=== PATIENT | male | born 1970 | race Caucasian/White ===

== ENCOUNTER 2021-07-27 13:03 | Inpatient (IN) ==
[2021-07-27] MEDS ORDERED: dexAMETHasone**PF** 10 MG/ML VIAL IV ONE (14:43)
[2021-07-27] MEDS ORDERED: SODIUM CHLORIDE 0.9% 1000ML 1,000 ML IV ONE (14:49)
--- NOTE | 2021-07-27 14:50 | Emergency Department Note ---
Impression & Plan Pneumonia due to COVID-19 virus, Hypoxia ED Provider Note NAME: HALIMA CORTEZ AGE: 51 SEX: M : 1970 ARRIVES VIA: Walk-In INFORMANT: Patient ED PROVIDER(S): Lucas Becker DO CHIEF COMPLAINT: Cough and shortness of breath HPI: Patient is a 51-year-old male who presents to the ER as he tested positive for Covid around July 08. His symptoms started on the with cough and congestion. He did have some diarrhea which was mainly gas. He denies any belly pain, nausea, or vomiting. No dysuria, urgency, or frequency. He notes he is short of breath but does not believe that is any worse. He has been using a pulse ox at home. He went to get his Covid vaccine today and was referred over for low pulse ox. ROS: See above HPI for pertinent positives & negatives. A total of 10 systems reviewed and were otherwise negative. PAST MEDICAL HISTORY:See Below PAST SURGICAL HISTORY:See Below FAMILY HISTORY:See Below SOCIAL HISTORY:See Below HOME MEDICATIONS:See Below ALLERGIES:See Below VITALS:See Below PHYSICAL EXAMINATION: GENERAL: Sitting up in bed, alert, well appearing, well nourished, no distress, non-toxic EYE EXAM: normal conjunctiva. OROPHARYNX: no exudate, no erythema, lips, buccal mucosa, and tongue normal and mucous membranes are moist NECK: supple, no nuchal rigidity, no adenopathy, non-tender LUNGS: Clear to auscultation. Normal chest wall mechanics HEART: no murmurs, S1 normal and S2 normal ABDOMEN: abdomen soft, non-tender, normo-active bowel sounds, no masses, no rebound or guarding. BACK: Back is symmetrical on inspection and there is no deformity, no midline tenderness, no CVA tenderness. SKIN: no rashes and no bruising UPPER EXTREMITIES: upper extremities are grossly normal. LOWER EXTREMITIES: No pitting edema. Calves are equal bilateral NEURO EXAM: Normal sensorium, cranial nerves II-XII grossly intact, normal speech, no gross weakness of arms, no gross weakness of legs. MEDICAL DECISION MAKING: Patient is a 51-year-old male who presents the ER for shortness of breath and concern for Covid as he did test positive around the . He is having pulse ox readings at home which are low. IV was established blood was obtained. Labs show no significant leukocytosis or anemia. Platelets were elevated at nearly 500. BMP with mild hypokalemia. LFTs were slightly up with an ALT of 100. T bili was normal. Lipase was slightly up at 450. Covid was positive. CT angios chest shows no PEs but multifocal infiltrate consistent with Covid. EKG was unremarkable. He was given steroids and fluids. Updated bedside discussed with the hospitalist admitted for further work-up. Triage Nursing notes reviewed. Limited review of prior medical records performed Vital Signs: reviewed and remarkable for tachy Differential diagnosis: Differential diagnoses includes but is not limited to pneumonia, bronchitis, COPD/Asthma exacerbation, pneumothorax, pulmonary embolism, congestive heart failure, acute coronary syndrome ER treatment provided: See below Diagnostics interpreted by me: ECG: Sinus rhythm rate of 98 Left axis No PVCs QTC 459 Cardiac Monitoring: An order was placed for continuous cardiac monitoring. The monitor shows a rate of 95 with sinus rhythm. Laboratory studies: As stated above and show below. Imaging studies: CT angios shows multifocal pneumonia. Consultation(s): none Procedures: none Critical Care: None Past Med/Surg History Medical History Asthma Depression GERD (gastroesophageal reflux disease) Moderate obstructive sleep apnea Surgical History History of surgery on arm fracture L arm, surgical repair Family History Mother Diabetes Hypertension Social History Smoking Status: Never smoker Tobacco Type: Smokeless Tobacco (Dip or Chew) Hx Alcohol Use: Yes (former alcohol user) Hx Substance Use: No Feels Safe at Home: Yes Allergies Allergies Allergy/AdvReac Type Severity Reaction Status Date / Time No Known Allergies Allergy Verified 07/27/21 15:43 Home Meds Home Medications Medication Instructions Recorded Confirmed aclidinium bromide 400 1 inh INHALATION Q12H 07/27/21 07/27/21 mcg/actuation breath activated powder inhaler (Tudorza Pressair) albuterol sulfate 2.5 mg INHALATION Q4H PRN 07/27/21 07/27/21 albuterol sulfate 90 mcg/actuation 2 puff INHALATION Q6H PRN 07/27/21 07/27/21 aerosol inhaler budesonide 0.5 mg/2 mL suspension 0.5 mg INHALATION BID 07/27/21 07/27/21 for nebulization (Pulmicort) fluticasone furoate 100 1 inh INHALATION DAILY 07/27/21 07/27/21 mcg-vilanterol 25 mcg/dose inhalation powder (Breo Ellipta) montelukast 10 mg tablet 10 mg PO DAILY 07/27/21 07/27/21 (Singulair) omeprazole 20 mg tablet,delayed 20 mg PO DAILY 07/27/21 07/27/21 release prednisone 5 mg tablet 5 mg PO DAILY 07/27/21 07/27/21 Results & Data (ED) Vital Signs Vital Signs - 24 hr 07/27/21 13:10 07/27/21 13:33 07/27/21 14:32 Temperature 36.7 C Temperature Source Temporal Artery Scan Pulse Rate 114 H 102 H Pulse Rate [Right Finger] 115 H Pulse Rate from SpO2 Sensor 100 H Respiratory Rate 20 20 23 Respiratory Effort / Characteristics Non-Labored Spontaneous Respiratory Depth Normal Respiratory Pattern Regular Blood Pressure 148/90 H 158/86 H Blood Pressure [Right Arm] 131/90 Blood Pressure Mean 109 110 Blood Pressure Mean [Right Arm] 103 Blood Pressure Position [Right Arm] Sitting Pulse Oximetry 91 90 89 L Oxygen Delivery Method Room Air Room Air Sepsis Recent Fever Within 48 Hours No Sepsis New/Unexplained Change in Mental Status No Sepsis Action Taken by Nursing No Action Required 07/27/21 15:00 07/27/21 15:27 07/27/21 15:30 Temperature Temperature Source Pulse Rate 100 H 78 95 H Pulse Rate [Right Finger] 87 Pulse Rate from SpO2 Sensor 100 H 94 H Respiratory Rate 31 H 20 29 H Respiratory Effort / Characteristics Respiratory Depth Respiratory Pattern Blood Pressure 128/98 155/99 H Blood Pressure [Right Arm] 128/98 Blood Pressure Mean 108 117 Blood Pressure Mean [Right Arm] 108 Blood Pressure Position [Right Arm] Lying Pulse Oximetry 89 L 91 92 Oxygen Delivery Method Room Air Sepsis Recent Fever Within 48 Hours Sepsis New/Unexplained Change in Mental Status Sepsis Action Taken by Nursing 07/27/21 16:13 07/27/21 16:30 07/27/21 16:45 Temperature Temperature Source Pulse Rate 127 H 150 H 98 H Pulse Rate [Right Finger] Pulse Rate from SpO2 Sensor 110 H Respiratory Rate 21 33 H 30 H Respiratory Effort / Characteristics Respiratory Depth Respiratory Pattern Blood Pressure Blood Pressure [Right Arm] Blood Pressure Mean Blood Pressure Mean [Right Arm] Blood Pressure Position [Right Arm] Pulse Oximetry 90 91 93 Oxygen Delivery Method Room Air Sepsis Recent Fever Within 48 Hours Sepsis New/Unexplained Change in Mental Status Sepsis Action Taken by Nursing Laboratory Data Result diagrams: 07/27/21 15:13 07/27/21 15:13 Lab Results 07/27/21 07/27/21 07/27/21 Range/Units 15:13 15:13 15:13 WBC 9.70 (4.8-10.8) K/uL RBC 5.09 (4.7-6.1) M/uL Hgb 15.9 (14.0-18.0) g/dL Hct 44.5 (42-52) % MCV 87.4 (80-100) fL MCH 31.2 (25-34) pg MCHC 35.7 (32-36) g/dL RDW Std Deviation 42.6 (36.4-46.3) fL RDW Coeff of Estiven 13.3 (11.5-14.5) % Plt Count 496 H (130-400) K/uL MPV 9.8 (7.4-10.4) fL Immature Gran % (Auto) 1.8 % Neut % (Auto) 73.4 % Lymph % (Auto) 13.8 % Burke % (Auto) 9.0 % Eos % (Auto) 1.6 % Baso % (Auto) 0.4 % Neut # (Auto) 7.12 H (1.4-6.5) K/uL Lymph # (Auto) 1.34 (1.2-3.4) K/uL Burke # (Auto) 0.87 H (0.11-0.59) K/uL Eos # (Auto) 0.16 (0-0.5) K/uL Baso # (Auto) 0.04 (0-0.2) K/uL Immature Gran # (Auto) 0.17 H (0.00-0.02) K/uL APTT 25.4 (21.0-31.0) Seconds PTT Ratio 1.0 Sodium 135 L (136-145) mmol/L Potassium 3.0 L (3.5-5.1) mmol/L Chloride 102 (98-107) mmol/L Carbon Dioxide 24 (21-32) mmol/L Anion Gap 8.0 (3-11) BUN 8 (7-18) mg/dl Creatinine 0.88 (0.6-1.4) mg/dl Est Cr Clr Drug Dosing 130.3 ml/min Est GFR ( Amer) 116.1 ml/min Est GFR (Non-Af Amer) 100.2 ml/min BUN/Creatinine Ratio 9.3 L (10-20) Glucose 126 H (70-99) mg/dl Calcium 8.5 (8.5-10.1) mg/dl Total Bilirubin 0.6 (0.2-1) mg/dl AST 49 H (15-37) U/L ALT 100 H (12-78) U/L Alkaline Phosphatase 116 (45-117) U/L Troponin I < 0.015 (0-0.045) ng/ml Total Protein 7.3 (6.4-8.2) gm/dl Albumin 2.4 L (3.4-5.0) gm/dl Globulin 4.9 H (2.5-4.0) gm/dl Albumin/Globulin Ratio 0.5 L (0.9-2) Lipase 452 H (73-393) U/L COVID-19 Eval Order SARS-CoV-2 (PCR) (Negative) 07/27/21 07/27/21 Range/Units 15:20 15:20 WBC (4.8-10.8) K/uL RBC (4.7-6.1) M/uL Hgb (14.0-18.0) g/dL Hct (42-52) % MCV (80-100) fL MCH (25-34) pg MCHC (32-36) g/dL RDW Std Deviation (36.4-46.3) fL RDW Coeff of Estiven (11.5-14.5) % Plt Count (130-400) K/uL MPV (7.4-10.4) fL Immature Gran % (Auto) % Neut % (Auto) % Lymph % (Auto) % Burke % (Auto) % Eos % (Auto) % Baso % (Auto) % Neut # (Auto) (1.4-6.5) K/uL Lymph # (Auto) (1.2-3.4) K/uL Burke # (Auto) (0.11-0.59) K/uL Eos # (Auto) (0-0.5) K/uL Baso # (Auto) (0-0.2) K/uL Immature Gran # (Auto) (0.00-0.02) K/uL APTT (21.0-31.0) Seconds PTT Ratio Sodium (136-145) mmol/L Potassium (3.5-5.1) mmol/L Chloride (98-107) mmol/L Carbon Dioxide (21-32) mmol/L Anion Gap (3-11) BUN (7-18) mg/dl Creatinine (0.6-1.4) mg/dl Est Cr Clr Drug Dosing ml/min Est GFR ( Amer) ml/min Est GFR (Non-Af Amer) ml/min BUN/Creatinine Ratio (10-20) Glucose (70-99) mg/dl Calcium (8.5-10.1) mg/dl Total Bilirubin (0.2-1) mg/dl AST (15-37) U/L ALT (12-78) U/L Alkaline Phosphatase (45-117) U/L Troponin I (0-0.045) ng/ml Total Protein (6.4-8.2) gm/dl Albumin (3.4-5.0) gm/dl Globulin (2.5-4.0) gm/dl Albumin/Globulin Ratio (0.9-2) Lipase (73-393) U/L COVID-19 Eval Order Covid[address] [facility] SARS-CoV-2 (PCR) POSITIVE A* (Negative) Administered Medications Discontinued Medications Dexamethasone Sodium Phosphate (DexamethasonePf 10 Mg/Ml Vial) 8 mg IV NOW ONE Stop: 07/27/21 14:44 Last Admin: 07/27/21 15:27 Dose: 8 mg Documented by: [id number] Sodium Chloride (Nss 1000ml) 1,000 mls @ 999 mls/hr IV .Q1H1M ONE Stop: 07/27/21 15:49 Last Infusion: 07/27/21 16:21 Dose: 0 mls/hr Documented by: [id number] Admin: 07/27/21 15:27 Dose: 999 mls/hr Documented by: [id number] Ioversol (Optiray 320 125ml) 119 ml IV ONCE ONE Stop: 07/27/21 16:04 Last Admin: 07/27/21 16:03 Dose: 119 ml Documented by: [id number] Potassium Chloride (Potassium Chloride Crtab 20 Meq Tabcr) 40 meq PO NOW STA Stop: 07/27/21 16:48 Last Admin: 07/27/21 17:15 Dose: 40 meq Documented by: [id number] Imaging Data Radiologist's Impression: Chest CTA 07/27/21 14:43 CT ANGIOGRAM OF THE CHEST CLINICAL HISTORY: Atypical chest pain. COMPARISON STUDY: Chest x-ray dated 07/27/2021. TECHNIQUE: Following the IV administration of 119 cc of Optiray 320, CT angiogram of the chest was performed from the upper abdomen to the thoracic inlet utilizing the pulmonary embolus protocol. Images are reviewed in the axial, sagittal, and coronal planes. 3-D MIPS images are created and assessed. IV contrast was administered without complication. A dose lowering technique was utilized adhering to the principles of ALARA. CT DOSE: 588.60 mGycm FINDINGS: Thyroid: Imaged portions of the thyroid gland are normal in size and attenuation. Thoracic aorta: The thoracic aorta is normal in caliber and demonstrates standard 3-vessel arch anatomy. No dissection is seen. Pulmonary vasculature: The pulmonary trunk is normal in caliber. There are no filling defects identified in main, lobar, or segmental pulmonary branches to suggest pulmonary embolus. Heart: The heart is top normal in size and without pericardial effusion. Lungs and pleural spaces: There is diffuse/multifocal airspace consolidation seen throughout both lungs. No pleural effusion is identified. The trachea and central airways are clear. Mediastinum: Mildly enlarged mediastinal nodes measure up to 12 mm in short axis. Asha: Mildly enlarged hilar nodes measure up to 12 mm in short axis. Axillae: There is no axillary lymphadenopathy. Upper abdomen: There is a small hiatal hernia. Partially visualized upper ab dominal viscera is otherwise within normal limits. Skeletal structures: No lytic or blastic bony lesions are seen. IMPRESSION: 1. There is no evidence of pulmonary embolus in the main, lobar, or segmental pulmonary arteries. 2. Diffuse/multifocal airspace consolidation is typical for pneumonia. Clinical correlation will be required and radiographic follow-up to resolution is heath mmended. 3. Mildly enlarged mediastinal and hilar nodes are likely reactive. ACT 112: Negative or not required by law. Electronically signed by: Cheikh Toledo M.D. 07/27/2021 4:36 PM Chest X-Ray 07/27/21 14:45 XR chest 1V portable HISTORY: Atypical Chest Pain COMPARISON: None. FINDINGS: No pneumothorax. No pleural effusions. The heart is mildly enlarged. There are low lung volumes. There are patchy bilateral airspace opacities with interstitial thickening. IMPRESSION: Patchy bilateral airspace opacities with interstitial thickening. This favors a multifocal pneumonia and may be secondary to a viral process. ACT 112: Negative or not required by law. Electronically signed by: Wallace Valera M.D. 07/27/2021 3:33 PM Discharge Plan Visit Data Chief Complaint: Shortness of Breath/Dyspnea Stated Complaint: O2 LEVEL DROPPING, POSITIVE COVID 07/06 ED Provider: Lucas Becker Discharge Problem: Pneumonia due to COVID-19 virus, Hypoxia Discharge Instructions Interventions: ED Discharge Assessment Last Done: 07/27/21 17:57
[2021-07-27 15:21] LABS: Basophils # (auto) 0.04 K/uL (0-0.2); Basophils % (auto) 0.4 %; Eosinophils # (auto) 0.16 K/uL (0-0.5); Eosinophils % (auto) 1.6 %; Hematocrit (blood only) 44.5 % (42-52); Hemoglobin 15.9 g/dL (14.0-18.0); Immature Granulocytes # (auto) 0.17 K/uL (0.00-0.02); Immature Granulocytes % (auto) 1.8 %; Lymphocytes # (auto) 1.34 K/uL (1.2-3.4); Lymphocytes % (auto) 13.8 %; Mean Corpuscular Hemoglobin 31.2 pg (25-34); Mean Corpuscular Hgb Conc 35.7 g/dL (32-36); Mean Corpuscular Volume 87.4 fL (80-100); Mean Platelet Volume 9.8 fL (7.4-10.4); Monocytes # (auto) 0.87 K/uL (0.11-0.59); Neutrophils # (auto) 7.12 K/uL (1.4-6.5); Neutrophils % (auto) 73.4 %; Platelet Count 496 K/uL (130-400); RDW Coefficient of Variation 13.3 % (11.5-14.5); RDW Standard Deviation 42.6 fL (36.4-46.3); Red Blood Count 5.09 M/uL (4.7-6.1)
[2021-07-27 15:31] LABS: Partial Thromboplastin Time 25.4 Seconds (21.0-31.0)
--- NOTE | 2021-07-27 15:34 | XRay Report ---
XR chest 1V portable HISTORY: Atypical Chest Pain COMPARISON: None. FINDINGS: No pneumothorax. No pleural effusions. The heart is mildly enlarged. There are low lung vol umes. There are patchy bilateral airspace opacities with interstitial thickening. IMPRESSION: Patchy bilateral airspace opacities with interstitial thickening. This favors a multifocal pneumonia and may be secondary to a viral process. ACT 112: Negative or not required by law. Electronically signed by: Wallace Valera M.D. 07/27/2021 3:33 PM
[2021-07-27 15:41] LABS: Alanine Aminotransferase 100 U/L (12-78); Albumin Level 2.4 gm/dl (3.4-5.0); Aspartate Aminotransferase 49 U/L (15-37); BUN Creatinine Ratio 9.3 (10-20); Blood Urea Nitrogen 8 mg/dl (7-18); Calcium 8.5 mg/dl (8.5-10.1); Carbon Dioxide 24 mmol/L (21-32); Chloride 102 mmol/L (98-107); Creatinine Clr Calc Pharmacy 130.3 ml/min; Est GFR (African American) 116.1 ml/min; Est GFR (Non-African American) 100.2 ml/min; Glucose 126 mg/dl (70-99); Lipase 452 U/L (73-393); Sodium 135 mmol/L (136-145)
[2021-07-27 15:46] LABS: Albumin Globulin Ratio 0.5 (0.9-2); Alkaline Phosphatase 116 U/L (45-117); Bilirubin,Total 0.6 mg/dl (0.2-1); Globulin 4.9 gm/dl (2.5-4.0); Total Protein 7.3 gm/dl (6.4-8.2); Troponin I < 0.015 ng/ml (0-0.045)
[2021-07-27] MEDS ORDERED: OPTIRAY 320 125ml IV ONE (16:03)
--- NOTE | 2021-07-27 16:37 | CT Scan Report ---
CT ANGIOGRAM OF THE CHEST CLINICAL HISTORY: Atypical chest pain. COMPARISON STUDY: Chest x-ray dated 07/27/2021. TECHNIQUE: Following the IV administration of 119 cc of Optiray 320, CT angiogram of the chest was pe rformed from the upper abdomen to the thoracic inlet utilizing the pulmonary embolus protocol. Images are reviewed in the axial, sagittal, and coronal planes. 3-D MIPS images are created and assessed. I V contrast was administered without complication. A dose lowering technique was utilized adhering to the principles of ALARA. CT DOSE: 588.60 mGycm FINDINGS: Thyroid: Imaged portions of the thyroid gland are normal in size and attenuation. Thoracic aorta: The thoracic aorta is normal in caliber and demonstrates standard 3-vessel arch anato my. No dissection is seen. Pulmonary vasculature: The pulmonary trunk is normal in caliber. There are no filling defects identif ied in main, lobar, or segmental pulmonary branches to suggest pulmonary embolus. Heart: The heart is top normal in size and without pericardial effusion. Lungs and pleural spaces: There is diffuse/multifocal airspace consolidation seen throughout both nathan gs. No pleural effusion is identified. The trachea and central airways are clear. Mediastinum: Mildly enlarged mediastinal nodes measure up to 12 mm in short axis. Asha: Mildly enlarged hilar nodes measure up to 12 mm in short axis. Axillae: There is no axillary lymphadenopathy. Upper abdomen: There is a small hiatal hernia. Partially visualized upper abdominal viscera is otherw ise within normal limits. Skeletal structures: No lytic or blastic bony lesions are seen. IMPRESSION: 1. There is no evidence of pulmonary embolus in the main, lobar, or segmental pulmonary arteries. 2. Diffuse/multifocal airspace consolidation is typical for pneumonia. Clinical correlation will be r equired and radiographic follow-up to resolution is recommended. 3. Mildly enlarged mediastinal and hilar nodes are likely reactive. ACT 112: Negative or not required by law. Electronically signed by: Cheikh Toledo M.D. 07/27/2021 4:36 PM
[2021-07-27] MEDS ORDERED: POTASSIUM CHLORIDE CRTAB 20 MEQ TABCR PO STA (16:47)
--- NOTE | 2021-07-27 17:08 | History & Physical Report ---
Date of Service July 27, 2021 Assessment & Plan (1) Pneumonia due to COVID-19 virus: (2) Hypoxia: (3) Asthma: (4) Moderate obstructive sleep apnea: (5) GERD (gastroesophageal reflux disease): Plan: This is a 51 yr old M who has a significant PMH of ALEXIS on CPAP, Asthma, Depression, Gerd who presents to ED 2/2 to + COVID -19 test. Pt tested positive for covid-19 on 07/13. Sx started on 07/08. Unfortunately he had his first vaccine dose on 07/06 and was due for 2nd dose today. Known sick contacts with family members. Chest CTA reveals multifocal PNA. Multifocal PNA 2/2 to Covid-19 Hypoxia Asthma admit to PCU IV decadron 6mg daily pt is out of window for remdesivir pulmonary toilet with incentive spirometry, albuterol and continue home inhalers tesradhaon angel encourage self proning continue home inhalers - advair and albuterol check esr/crp, procalcitonin, ferritin Hypokalemia k 3.0, give 40 meq orally will give additional 10 meq KCL IV x 2 monitor bmp Hypoalbuminemia consult sales service professional Elevated LFTs likely viral in etiology repeat in a.m, monitor ALEXIS continue cpap Gerd continue PPI Dispo: PCU FULL CODE PCP: Isaak Pt was seen and examined in collaboration with Dr. Duong, please see addendum History of Present Illness Chief Complaint: Seen in clinic and found to be hypoxic; referred to ED. Primary Care Provider: Santi Mulligan MD This is a 51 yr old M who has a significant PMH of ALEXIS on CPAP, Asthma, Depression, Gerd who presents to ED 2/2 to + COVID -19 test. He had 1st vaccine on 07/06/21 and was suppose to get second dose today. He was seen and evaluated in clinic due to worsened SOB and due for second dose. He was found to be hypoxic saturating at 88%. He was dx with COVID-19 on 07/13. He continues to complain of weakness, productive cough and fatigue. He also admits to prior lung problems with asthma. Sx started on 07/08 with cough and congestion. He denies f/c/s, chest pain, hemoptysis, n/v/d, abdominal pain. He does have SOB at rest and with exertion as well decreased appetite. In ED he was hypoxic with exertion, CT chest consistent with multifocal viral PNA. He also had hypokalemia, and hyponatremia. He received 8mg IV decadron and IVF. Allergies Allergy/AdvReac Type Severity Reaction Status Date / Time No Known Allergies Allergy Verified 07/27/21 15:43 Home Medications Medication Instructions Recorded Confirmed Type aclidinium bromide 400 1 inh INHALATION Q12H 07/27/21 07/27/21 History mcg/actuation breath activated powder inhaler (Tudorza Pressair) albuterol sulfate 2.5 mg INHALATION Q4H PRN 07/27/21 07/27/21 History albuterol sulfate 90 mcg/actuation 2 puff INHALATION Q6H PRN 07/27/21 07/27/21 History aerosol inhaler budesonide 0.5 mg/2 mL suspension 0.5 mg INHALATION BID 07/27/21 07/27/21 History for nebulization (Pulmicort) fluticasone 250 mcg-salmeterol 50 1 inh INHALATION BID 07/27/21 07/27/21 History mcg/dose blistr powdr for inhalation (Advair Diskus) montelukast 10 mg tablet 10 mg PO DAILY 07/27/21 07/27/21 History (Singulair) omeprazole 20 mg tablet,delayed 20 mg PO DAILY 07/27/21 07/27/21 History release prednisone 5 mg tablet 5 mg PO DAILY 07/27/21 07/27/21 History Past Med/Surg History Medical History Asthma Depression GERD (gastroesophageal reflux disease) Moderate obstructive sleep apnea Surgical History History of surgery on arm fracture L arm, surgical repair Family History Mother Diabetes Hypertension Social History Smoking Status: Never smoker Tobacco Type: Smokeless Tobacco (Dip or Chew) Hx Alcohol Use: Yes (former alcohol user) Hx Substance Use: No Feels Safe at Home: Yes Review of Systems Review of Systems: All systems reviewed & are unremarkable except as noted in HPI & below Physical Exam Physical Exam: Please see Dr. Duong addendum regarding physical exam findings. Results & Data Results & Data ([facility]) Vital Signs (Past 12 Hours) Vital Signs Temp Pulse Pulse Resp BP BP Pulse Ox 07/27/21 16:45 98 H 30 H 93 07/27/21 16:30 150 H 33 H 91 07/27/21 16:13 127 H 21 90 07/27/21 15:30 95 H 29 H 155/99 H 92 07/27/21 15:27 78 87 20 128/98 91 07/27/21 15:00 100 H 31 H 128/98 89 L 07/27/21 14:32 102 H 23 158/86 H 89 L 07/27/21 13:33 115 H 20 131/90 90 07/27/21 13:10 36.7 C 114 H 20 148/90 H 91 Diagnostic Findings Chest CTA 07/27/21 14:43 CT ANGIOGRAM OF THE CHEST CLINICAL HISTORY: Atypical chest pain. COMPARISON STUDY: Chest x-ray dated 07/27/2021. TECHNIQUE: Following the IV administration of 119 cc of Optiray 320, CT angiogram of the chest was performed from the upper abdomen to the thoracic inlet utilizing the pulmonary embolus protocol. Images are reviewed in the axial, sagittal, and coronal planes. 3-D MIPS images are created and assessed. IV contrast was administered without complication. A dose lowering technique was utilized adhering to the principles of ALARA. CT DOSE: 588.60 mGycm FINDINGS: Thyroid: Imaged portions of the thyroid gland are normal in size and attenuation. Thoracic aorta: The thoracic aorta is normal in caliber and demonstrates standard 3-vessel arch anatomy. No dissection is seen. Pulmonary vasculature: The pulmonary trunk is normal in caliber. There are no filling defects identified in main, lobar, or segmental pulmonary branches to suggest pulmonary embolus. Heart: The heart is top normal in size and without pericardial effusion. Lungs and pleural spaces: There is diffuse/multifocal airspace consolidation seen throughout both lungs. No pleural effusion is identified. The trachea and central airways are clear. Mediastinum: Mildly enlarged mediastinal nodes measure up to 12 mm in short axis. Asha: Mildly enlarged hilar nodes measure up to 12 mm in short axis. Axillae: There is no axillary lymphadenopathy. Upper abdomen: There is a small hiatal hernia. Partially visualized upper abdominal viscera is otherwise within normal limits. Skeletal structures: No lytic or blastic bony lesions are seen. IMPRESSION: 1. There is no evidence of pulmonary embolus in the main, lobar, or segmental pulmonary arteries. 2. Diffuse/multifocal airspace consolidation is typical for pneumonia. Clinical correlation will be required and radiographic follow-up to resolution is recommended. 3. Mildly enlarged mediastinal and hilar nodes are likely reactive. ACT 112: Negative or not required by law. Electronically signed by: Cheikh Toledo M.D. 07/27/2021 4:36 PM Chest X-Ray 07/27/21 14:45 XR chest 1V portable HISTORY: Atypical Chest Pain COMPARISON: None. FINDINGS: No pneumothorax. No pleural effusions. The heart is mildly enlarged. There are low lung volumes. There are patchy bilateral airspace opacities with interstitial thickening. IMPRESSION: Patchy bilateral airspace opacities with interstitial thickening. This favors a multifocal pneumonia and may be secondary to a viral process. ACT 112: Negative or not required by law. Electronically signed by: Wallace Valera M.D. 07/27/2021 3:33 PM Medications Administered Medication List Discontinued Medications Dexamethasone Sodium Phosphate (DexamethasonePf 10 Mg/Ml Vial) 8 mg IV NOW ONE Stop: 07/27/21 14:44 Last Admin: 07/27/21 15:27 Dose: 8 mg Documented by: [id number] Sodium Chloride (Nss 1000ml) 1,000 mls @ 999 mls/hr IV .Q1H1M ONE Stop: 07/27/21 15:49 Last Infusion: 07/27/21 16:21 Dose: 0 mls/hr Documented by: [id number] Admin: 07/27/21 15:27 Dose: 999 mls/hr Documented by: [id number] Ioversol (Optiray 320 125ml) 119 ml IV ONCE ONE Stop: 07/27/21 16:04 Last Admin: 07/27/21 16:03 Dose: 119 ml Documented by: [id number] ECG Rate (beats per minute): 98 Rhythm: normal sinus COVID-19 Results Results COVID-19 Adm Lab Results: RBC 5.09 M/uL (4.7-6.1) 07/27/21 WBC 9.70 K/uL (4.8-10.8) 07/27/21 Hgb 15.9 g/dL (14.0-18.0) 07/27/21 Hct 44.5 % (42-52) 07/27/21 Plt Count 496 K/uL (130-400) H 07/27/21 Neutrophils (%) (Auto) 73.4 % 07/27/21 Lymphocytes (%) (Auto) 13.8 % 07/27/21 Monocytes # (Auto) 0.87 K/uL (0.11-0.59) H 07/27/21 Eosinophils # (Auto) 0.16 K/uL (0-0.5) 07/27/21 Immature Granulocyte % (Auto) 1.8 % 07/27/21 Neutrophils # (Auto) 7.12 K/uL (1.4-6.5) H 07/27/21 Lymphocytes # (Auto) 1.34 K/uL (1.2-3.4) 07/27/21 Monocytes # (Auto) 0.87 K/uL (0.11-0.59) H 07/27/21 Eosinophils # (Auto) 0.16 K/uL (0-0.5) 07/27/21 Basophils # (Auto) 0.04 K/uL (0-0.2) 07/27/21 Immature Granulocyte # (Auto) 0.17 K/uL (0.00-0.02) H 07/27/21 Na 135 mmol/L (136-145) L 07/27/21 K 3.0 mmol/L (3.5-5.1) L 07/27/21 Cl 102 mmol/L (98-107) 07/27/21 CO2 24 mmol/L (21-32) 07/27/21 Anion Gap 8.0 (3-11) 07/27/21 BUN 8 mg/dl (7-18) 07/27/21 Creatinine 0.88 mg/dl (0.6-1.4) 07/27/21 BUN/Creatinine Ratio 9.3 (10-20) L 07/27/21 Glucose Level 126 mg/dl (70-99) H 07/27/21 Ca 8.5 mg/dl (8.5-10.1) 07/27/21 Total Bilirubin 0.6 mg/dl (0.2-1) 07/27/21 AST/SGOT 49 U/L (15-37) H 07/27/21 ALT/SGPT 100 U/L (12-78) H 07/27/21 Alkaline Phosphatase 116 U/L (45-117) 07/27/21 Total Protein 7.3 gm/dl (6.4-8.2) 07/27/21 Albumin 2.4 gm/dl (3.4-5.0) L 07/27/21 Globulin 4.9 gm/dl (2.5-4.0) H 07/27/21 Albumin/Globulin Ratio 0.5 (0.9-2) L 07/27/21 Troponin I < 0.015 ng/ml (0-0.045) 07/27/21 PTT 25.4 Seconds (21.0-31.0) 07/27/21 COVID-19 PCR POSITIVE (Negative) A* 07/27/21 Chest X-Ray 07/27/21 Code Status & VTE Plan Code Status Full Code VTE Prophylaxis Plan VTE Prophylaxis will be ordered: Yes Supervising Physician Co-Signing Physician Notes I saw this patient with the physician roofer assistant, I participated in the history, physical, review of systems, and physical exam. I reviewed the medications with the patient and the physician roofer assistant and helped reconcile the medications. I helped take a detailed family and social history as well. I formulated the assessment and plan personally with the physician roofer assistant and went over it with the patient. ROS-No Headache, No Visual Changes, +Nausea, No Vomiting, No Fever, No Chills, No Neck Pain or Stiffness, No Chest Pain, No Palpitations, No SOB, No VILCHIS, No Cough, No Sputum, No Wheezing, No Abdominal Pain, No Diarrhea, No Hematemesis, No Hemoptysis, No Unexpected Weight Loss, No Flank pain, No Melena, + Hematochezia, No Frequency, No Urgency, No Burning, No Hematuria, No Rashes, No Diaphoresis. Appetite is Normal, +Aches Physical Exam Gen-AAO x 3, NAD, Afebrile Head-NCAT, EOMI, PERRLA, Anicteric Sclera, No Posterior Pharyngeal Erythema Neck-Supple, No JVD, No Thyromegaly, No Masses, No LAD, No Bruits Lungs-Bibasilar Rales, No Rhonchi, No Wheezing, No Crepitus Chest-No S4, +S1, +S2, No S3, No Murmurs, No Rubs, No Gallops, No Ectopy Abdomen-Soft, Bowel Sounds Present, Non Tender, Non Distended, No Hepatomegaly, No Splenomegaly, No Palpable Masses, No Rebound, No Rigidity, No Guarding Musculoskeletal-Full Range of Motion Bilaterally, No CVAT Extremities-No Cyanosis, No Clubbing, No Edema Nuero-Cranial Nerves II-XII grossly intact, Motor WNL, DTRs WNL, Strength WNL, Non Focal Psych-Odd Mood
[2021-07-27] MEDS ORDERED: POTASSIUM CHLORIDE / WTR 10 MEQ/100 ML PLCT IV ONE (17:22)
[2021-07-27] MEDS ORDERED: ALBUTEROL 0.083% NEBU SOLN 3 ML VIAL INH PRN (19:40)
[2021-07-27] MEDS ORDERED: ACETAMINOPHEN 325 MG TAB PO PRN (19:40)
[2021-07-27] MEDS ORDERED: MAGNESIUM HYDROXIDE SUSP 30 ML UDC PO PRN (19:40)
[2021-07-27] MEDS ORDERED: ALUMINUM/MAGNESIUM SUSP 30 ML UDC PO PRN (19:40)
[2021-07-27] MEDS ORDERED: ONDANSETRON INJ 2 MG/ML 2 ML VIAL IV PRN (19:40)
[2021-07-27] MEDS ORDERED: POLYETHYLENE (MIRALAX) 17 GM PACK PO PRN (19:40)
[2021-07-27] MEDS: BUDESONIDE 0.5 MG/2 ML VIAL (PULMICORT) INH SCH (20:17)
[2021-07-27] MEDS: ALBUTEROL HFA 8 GM INHALER INH SCH (20:17)
[2021-07-27] MEDS: ENOXAPARIN INJ 40 MG/0.4 ML SYR SQ SCH (21:56)
[2021-07-27] MEDS: BENZONATATE 100 MG CAPSULE PO SCH (22:06)
[2021-07-28] MEDS: NYSTATIN SUSP 500,000 U/5 ML UDC PO SCH ×5 (02:56→20:40)
--- NOTE | 2021-07-28 06:03 | Electrocardiogram Report ---
Test Reason : Blood Pressure : / mmHG Vent. Rate : 098 BPM Atrial Rate : 098 BPM P-R Int : 156 ms QRS Dur : 082 ms QT Int : 360 ms P-R-T Axes : 035 -23 006 degrees QTc Int : 459 ms Poor data quality, interpretation may be adversely affected Normal sinus rhythm Possible Left atrial enlargement Left ventricular hypertrophy Abnormal ECG No previous ECGs available Confirmed by Catarino Cuellar ([id number]) on 07/28/2021 6:03:02 AM Referred By: Geetha Tavares Confirmed By:Catarino Cuellar
[2021-07-28] MEDS: ALBUTEROL HFA 8 GM INHALER INH SCH ×2 (07:16→07:30)
[2021-07-28 07:17] LABS: Basophils # (auto) 0.02 K/uL (0-0.2); Basophils % (auto) 0.2 %; Eosinophils # (auto) 0.01 K/uL (0-0.5); Eosinophils % (auto) 0.1 %; Hematocrit (blood only) 41.7 % (42-52); Hemoglobin 14.5 g/dL (14.0-18.0); Immature Granulocytes # (auto) 0.16 K/uL (0.00-0.02); Immature Granulocytes % (auto) 1.3 %; Lymphocytes # (auto) 1.52 K/uL (1.2-3.4); Lymphocytes % (auto) 12.7 %; Mean Corpuscular Hemoglobin 30.7 pg (25-34); Mean Corpuscular Hgb Conc 34.8 g/dL (32-36); Mean Corpuscular Volume 88.2 fL (80-100); Mean Platelet Volume 9.7 fL (7.4-10.4); Monocytes # (auto) 1.05 K/uL (0.11-0.59); Monocytes % (auto) 8.8 %; Neutrophils % (auto) 76.9 %; Platelet Count 501 K/uL (130-400); RDW Coefficient of Variation 13.4 % (11.5-14.5); RDW Standard Deviation 43.3 fL (36.4-46.3); Red Blood Count 4.73 M/uL (4.7-6.1); White Blood Count 11.96 K/uL (4.8-10.8)
[2021-07-28] MEDS: BUDESONIDE 0.5 MG/2 ML VIAL (PULMICORT) INH SCH ×2 (07:31→19:52)
[2021-07-28 08:00] LABS: Albumin Globulin Ratio 0.6 (0.9-2); Albumin Level 2.4 gm/dl (3.4-5.0); BUN Creatinine Ratio 13.1 (10-20); Bilirubin,Total 0.3 mg/dl (0.2-1); Calcium 8.6 mg/dl (8.5-10.1); Creatinine Clr Calc Pharmacy 112.5 ml/min; Est GFR (African American) 118.3 ml/min; Est GFR (Non-African American) 102.1 ml/min; Globulin 4.3 gm/dl (2.5-4.0); Magnesium 2.7 mg/dl (1.8-2.4); Potassium 3.9 mmol/L (3.5-5.1); Total Protein 6.7 gm/dl (6.4-8.2)
[2021-07-28] MEDS: BENZONATATE 100 MG CAPSULE PO SCH ×3 (08:06→20:40)
[2021-07-28] MEDS: PANTOprazole 40 MG TAB PO SCH (08:06)
[2021-07-28] MEDS: FLUTICASONE/VILANTEROL 100/25MCG 14 PUFFS/INHALER INH SCH (08:06)
[2021-07-28] MEDS ORDERED: UMECLIDINIUM BROMIDE 62.5MCG/BLISTER 7 PUFFS/INHALER INH SCH (09:00)
[2021-07-28] MEDS ORDERED: MONTELUKAST SODIUM 10 MG TABLET PO SCH ×2 (09:00→21:00)
[2021-07-28 09:06] LABS: Estimated Average Glucose 143 mg/dl; Hemoglobin A1C 6.6 % (4.5-5.6)
[2021-07-28] MEDS: ENOXAPARIN INJ 40 MG/0.4 ML SYR SQ SCH (09:49)
[2021-07-28] MEDS: dexAMETHasone 6 MG in SYRINGE 0 ML IV SCH (09:50)
[2021-07-28] MEDS ORDERED: ALPRAZolam 0.5 MG TABLET PO STA (16:55)
--- NOTE | 2021-07-28 17:20 | Hospitalist Progress Note ---
Date of Service July 28, 2021 Assessment & Plan (1) Pneumonia due to COVID-19 virus: Plan: recently infected with covid and is no longer symptomatic-denies coughing, respiratory symptoms, fevers, chills. 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 Two step ordered in preparation for discharge to home where patient states he will be more comfortable. (2) Hypoxia: Plan: resolved. Would recommend repeat imaging in 4-6 weeks to ensure complete resolution of pneumonia. 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 He doesn't require oxygen on a regular basis and takes montelukast, daily prednisone 5mg, Pulmicort BID INH, Breo and Tudorza. He is looking to followup with Dr. Don from [facility] but hasn't yet gotten an appointment. (4) Moderate obstructive sleep apnea: (5) GERD (gastroesophageal reflux disease): (6) Anxiety: Plan: Patient reports anxiety that occurs when he leaves his home, and that he is claustrophobic. He is upset about multiple things today and as a result, he is slightly tachycardic and hypertensive. He wants to go home, and would probably be better served there. Persistent pneumonia is present on imaging. If he p asses a two step would let him go home with a short course of decadron given the ongoing pneumonia, recent hypoxia yesterday and the h/o asthma with pulmonary lung injury. Recommend counseling for severe anxiety. (7) Hypokalemia: Plan: repleted. (8) Transaminitis: Plan: resolving, likely related to recent covid illness. Follow-up as outpatient with repeat LFTs with PCP office. (9) DVT prophylaxis: Plan: Lovenox 40mg q12h Full Code Dispo-to home. Rox[facility] Brantley [facility] and [facility]ticipated Discharge Date Admission Date: July 27, 2021 Subjective 51 yo M reports recent illness for covid where he was symptomatic for 13 days. He is now feeling better, however, when he went for his second covid vaccine yesterday he was found to be hypoxic with oxygen saturation 88% on room air. He is extremely nervous at this time, walking anxiously around the room, fixing and straightening things. Very anxious. He reports claustophobia and states he has an issue with anxiety "when I leave my home." He is upset that he is here and wants to leave. He has been on disability for a number of years and reports disdain for the fact that supplies and followup medical care by pulmonology has not been provided to him reliably. 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 He takes chronic daily prednisone. He is also upset about receiving DVT prophylaxis. Offered a Xanax for what appears to be close to a panic attack. He appears almost out of control. He agreed, and became tearful. He denies regular alcohol use and reports inconsistent use of tobacco chew. He has not required oxygen all day and is up and ambulating without breathing issues at all. 2 step ordered. Review of Systems Review of Systems: At least ten systems were reviewed and negative except as indicated in HPI above. Physical Exam Physical Exam: CONSTITUTIONAL: WNWD, vitals as above, generally anxious and panicked. EYES: normal conjunctivae, no scleral icterus ENT: external ear and nose normal, MMM NECK: trachea midline RESPIRATORY: clear to auscultation bilaterally, no crackles, rales or wheezes, normal respiratory effort CARDIOVASCULAR: regular rate and rhythm, S1 and 2 heard without murmurs, gallops or rubs, no JVD, no peripheral edema CHEST: inspection of chest was normal GASTROINTESTINAL: soft, nontender, nondistended, no guarding. MUSCULOSKELETAL: strength 5/5 throughout, head is normocephalic and atraumatic, ambulatory. SKIN: warm and dry NEUROLOGIC: CN 2-12 grossly intact, no sensory deficit, normal cognition, pressured speech PSYCHIATRIC: alert cooperative and oriented to person, place and time. Anxious, easily agitated. bouncing around the room. Results & Data Results & Data ([facility]) Vital Signs (Past 12 Hours) Vital Signs Temp Pulse Pulse Resp BP BP Pulse Ox 07/28/21 15:41 37.0 C 106 H 20 174/117 H 93 07/28/21 11:02 36.5 C 112 H 20 158/98 H 90 07/28/21 07:33 80 20 94 07/28/21 07:23 36.8 C 109 H 22 161/99 H 92 Laboratory Results Short CBC 07/28/21 Range/Units 06:51 WBC 11.96 H (4.8-10.8) K/uL Hgb 14.5 (14.0-18.0) g/dL Hct 41.7 L (42-52) % Plt Count 501 H (130-400) K/uL BMP 07/28/21 06:51 Sodium 139 Potassium 3.9 D Chloride 108 H Carbon Dioxide 26 BUN 11 Creatinine 0.84 Glucose 155 H Calcium 8.6 Liver Function 07/28/21 Range/Units 06:51 Total Bilirubin 0.3 (0.2-1) mg/dl AST 30 (15-37) U/L ALT 80 H (12-78) U/L Alkaline Phosphatase 109 (45-117) U/L Albumin 2.4 L (3.4-5.0) gm/dl Medications Administered Current Inpatient Medications Acetaminophen (Acetaminophen 325 Mg Tab) 650 mg PO Q4H PRN PRN Reason: Pain or Fever Stop: 08/26/21 19:39 Al Hydrox/Mg Hydrox/Simethicone (Aluminum/Magnesium Susp 30 Ml Udc) 15 ml PO Q4H PRN PRN Reason: Dyspepsia Stop: 08/26/21 19:39 Albuterol (Albuterol 0.083% Nebu Soln 3 Ml Vial) 2.5 mg INH Q4H PRN PRN Reason: Shortness Of Breath Stop: 08/26/21 19:39 Benzonatate (Benzonatate 100 Mg Capsule) 100 mg PO TID PEDRO Stop: 08/26/21 20:59 Last Admin: 07/28/21 13:41 Dose: Not Given Documented by: Budesonide (Budesonide 0.5 Mg/2 Ml Vial (Pulmicort)) 0.5 mg INH BID PEDRO Stop: 08/26/21 20:59 Last Admin: 07/28/21 07:31 Dose: 0.5 mg Documented by: Enoxaparin Sodium (Enoxaparin Inj 40 Mg/0.4 Ml Syr) 40 mg SQ Q12H PEDRO Stop: 08/26/21 21:59 Last Admin: 07/28/21 09:49 Dose: 40 mg Documented by: Fluticasone/Vilanterol (Fluticasone/Vilanterol 100/25mcg 14 Puffs/Inhaler) 1 puffs INH DAILY PEDRO Stop: 08/27/21 08:59 Last Admin: 07/28/21 08:06 Dose: 1 puffs Documented by: Dexamethasone 6 mg/ Syringe 1.5 mls @ 1 mls/min IV DAILY PEDRO Stop: 08/07/21 08:59 Last Admin: 07/28/21 09:50 Dose: 1 mls/min Documented by: Magnesium Hydroxide (Magnesium Hydroxide Susp 30 Ml Udc) 30 ml PO Q12H PRN PRN Reason: Constipation Stop: 08/26/21 19:39 Montelukast Sodium (Montelukast Sodium 10 Mg Tablet) 10 mg PO DAILY PEDRO Stop: 08/27/21 08:59 Last Admin: 07/28/21 08:06 Dose: 10 mg Documented by: Nystatin (Nystatin Susp 500,000 U/5 Ml Udc) 5 ml PO QID PEDRO Stop: 08/07/21 02:29 Last Admin: 07/28/21 17:01 Dose: Not Given Documented by: Ondansetron HCl (Ondansetron Inj 2 Mg/Ml 2 Ml Vial) 4 mg IV Q6H PRN PRN Reason: Nausea Stop: 08/26/21 19:39 Pantoprazole Sodium (Pantoprazole 40 Mg Tab) 40 mg PO DAILY PEDRO Stop: 08/27/21 08:59 Last Admin: 07/28/21 08:06 Dose: 40 mg Documented by: Polyethylene Glycol (Polyethylene (Miralax) 17 Gm Pack) 17 gm PO DAILY PRN PRN Reason: Constipation Stop: 08/26/21 19:39 Umeclidinium [place] (Umeclidinium [place] 62.5mcg/Blister 7 Puffs/Inhaler) 1 puffs INH DAILY [facility]; Protocol Stop: 08/27/21 08:59 Last Admin: 07/28/21 08:06 Dose: 1 puffs Documented by:
[2021-07-28] MEDS ORDERED: ALPRAZolam 0.5 MG TABLET PO PRN (18:39)
--- NOTE | 2021-07-28 18:41 | Hospitalist Progress Note ---
Date of Service July 28, 2021 Assessment & Plan (1) Pneumonia due to COVID-19 virus: Plan: recently infected with covid and is no longer symptomatic-denies coughing, respiratory symptoms, fevers, chills. He is immune suppressed as he is on senior living steroids. Two step ordered in preparation for discharge to home where patient states he will be more comfortable. 2LPM required. Need to stay overnight as there is no oxygen supplier currently available. (2) Hypoxia: Plan: resolved. Would recommend repeat imaging in 4-6 weeks to ensure complete resolution of pneumonia. 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 He doesn't require oxygen on a regular basis and takes montelukast, daily prednisone 5mg, Pulmicort BID INH, Breo and Tudorza. He is looking to followup with Dr. Don from [facility] but hasn't yet gotten an appointment. (4) Moderate obstructive sleep apnea: Plan: cont CPAP at home, currently declining offered hospital CPAP which is fine. (5) Anxiety: Plan: Patient reports anxiety that occurs when he leaves his home, and that he is claustrophobic. He is upset about multiple things today and as a result, he is slightly tachycardic and hypertensive. He wants to go home, and would probably be better served there. Persistent pneumonia is present on imaging. If he pass es a two step would let him go home with a short course of decadron given the ongoing pneumonia, recent hypoxia noted prior to admission and the h/o asthma with pulmonary lung injury. Recommend counseling for severe anxiety. (6) Hypokalemia: Plan: repleted. (7) Transaminitis: Plan: resolving, likely related to recent covid illness. Follow-up as outpatient with repeat LFTs with PCP office. (8) DVT prophylaxis: Plan: Lovenox 40mg [id number] Full Code Dispo-to home when oxygen supply available. Roxana Brantley DO [facility] Hospitalist Admission and Anticipated Discharge Date Admission Date: July 27, 2021 Subjective 51 yo M reports recent illness for covid where he was symptomatic for 13 days. He is now feeling better, however, when he went for his second covid vaccine yesterday he was found to be hypoxic with oxygen saturation 88% on room air. He is extremely nervous at this time, walking anxiously around the room, fixing and straightening things. Very anxious. He reports claustophobia and states he has an issue with anxiety "when I leave my home." He is upset that he is here and wants to leave. He has been on disability for a number of years and reports disdain for the fact that supplies and followup medical care by pulmonology has not been provided to him reliably. 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 He takes chronic daily prednisone. He is also upset about receiving DVT prophylaxis. Offered a Xanax for what appears to be close to a panic attack. He appears almost out of control. He agreed, and became tearful. He denies regular alcohol use and reports inconsistent use of tobacco chew. He has not required oxygen all day and is up and ambulating without breathing issues at all. 2 step ordered. Review of Systems Review of Systems: At least ten systems were reviewed and negative except as indicated in HPI above. Physical Exam Physical Exam: CONSTITUTIONAL: WNWD, vitals as above, generally anxious and panicked. EYES: normal conjunctivae, no scleral icterus ENT: external ear and nose normal, MMM NECK: trachea midline RESPIRATORY: clear to auscultation bilaterally, no crackles, rales or wheezes, normal respiratory effort CARDIOVASCULAR: regular rate and rhythm, S1 and 2 heard without murmurs, gallops or rubs, no JVD, no peripheral edema CHEST: inspection of chest was normal GASTROINTESTINAL: soft, nontender, nondistended, no guarding. MUSCULOSKELETAL: strength 5/5 throughout, head is normocephalic and atraumatic, ambulatory. SKIN: warm and dry NEUROLOGIC: CN 2-12 grossly intact, no sensory deficit, normal cognition, pressured speech PSYCHIATRIC: alert cooperative and oriented to person, place and time. Anxious, easily agitated. bouncing around the room. Results & Data Results & Data ([facility]) Vital Signs (Past 12 Hours) Vital Signs Temp Pulse Pulse Pulse Pulse Pulse Pulse 07/28/21 18:31 102 H 07/28/21 16:51 122 H 125 H 124 H 112 H 07/28/21 15:41 37.0 C 07/28/21 11:02 36.5 C 07/28/21 07:33 80 07/28/21 07:23 36.8 C Pulse Pulse Resp Resp Resp Resp Resp 07/28/21 18:31 07/28/21 16:51 104 H 21 22 23 20 07/28/21 15:41 106 H 20 07/28/21 11:02 112 H 20 07/28/21 07:33 20 07/28/21 07:23 109 H 22 Resp BP BP Pulse Ox Pulse Ox Pulse Ox Pulse Ox 07/28/21 18:31 07/28/21 16:51 16 88 L 90 86 L 07/28/21 15:41 174/117 H 93 07/28/21 11:02 158/98 H 90 07/28/21 07:33 94 07/28/21 07:23 161/99 H 92 Pulse Ox Pulse Ox 07/28/21 18:31 07/28/21 16:51 90 93 07/28/21 15:41 07/28/21 11:02 07/28/21 07:33 07/28/21 07:23 Laboratory Results Short CBC 07/28/21 Range/Units 06:51 WBC 11.96 H (4.8-10.8) K/uL Hgb 14.5 (14.0-18.0) g/dL Hct 41.7 L (42-52) % Plt Count 501 H (130-400) K/uL BMP 07/28/21 06:51 Sodium 139 Potassium 3.9 D Chloride 108 H Carbon Dioxide 26 BUN 11 Creatinine 0.84 Glucose 155 H Calcium 8.6 Liver Function 07/28/21 Range/Units 06:51 Total Bilirubin 0.3 (0.2-1) mg/dl AST 30 (15-37) U/L ALT 80 H (12-78) U/L Alkaline Phosphatase 109 (45-117) U/L Albumin 2.4 L (3.4-5.0) gm/dl Medications Administered Current Inpatient Medications Acetaminophen (Acetaminophen 325 Mg Tab) 650 mg PO Q4H PRN PRN Reason: Pain or Fever Stop: 08/26/21 19:39 Al Hydrox/Mg Hydrox/Simethicone (Aluminum/Magnesium Susp 30 Ml Udc) 15 ml PO Q4H PRN PRN Reason: Dyspepsia Stop: 08/26/21 19:39 Albuterol (Albuterol 0.083% Nebu Soln 3 Ml Vial) 2.5 mg INH Q4H PRN PRN Reason: Shortness Of Breath Stop: 08/26/21 19:39 Alprazolam (Alprazolam 0.5 Mg Tablet) 0.5 mg PO Q8H PRN PRN Reason: anxiety Stop: 08/27/21 18:38 Benzonatate (Benzonatate 100 Mg Capsule) 100 mg PO TID [facility] Stop: 08/26/21 20:59 Last Admin: 07/28/21 13:41 Dose: Not Given Documented by: Budesonide (Budesonide 0.5 Mg/2 Ml Vial (Pulmicort)) 0.5 mg INH BID [facility] Stop: 08/26/21 20:59 Last Admin: 07/28/21 07:31 Dose: 0.5 mg Documented by: Enoxaparin Sodium (Enoxaparin Inj 40 Mg/0.4 Ml Syr) 40 mg SQ Q12H [facility] Stop: 08/26/21 21:59 Last Admin: 07/28/21 09:49 Dose: 40 mg Documented by: Fluticasone/Vilanterol (Fluticasone/Vilanterol 100/25mcg 14 Puffs/Inhaler) 1 puffs INH DAILY [facility] Stop: 08/27/21 08:59 Last Admin: 07/28/21 08:06 Dose: 1 puffs Documented by: Dexamethasone 6 mg/ Syringe 1.5 mls @ 1 mls/min IV DAILY [facility] Stop: 08/07/21 08:59 Last Admin: 07/28/21 09:50 Dose: 1 mls/min Documented by: Magnesium Hydroxide (Magnesium Hydroxide Susp 30 Ml Udc) 30 ml PO Q12H PRN PRN Reason: Constipation Stop: 08/26/21 19:39 Montelukast Sodium (Montelukast Sodium 10 Mg Tablet) 10 mg PO DAILY [facility] Stop: 08/27/21 08:59 Last Admin: 07/28/21 08:06 Dose: 10 mg Documented by: Nystatin (Nystatin Susp 500,000 U/5 Ml Udc) 5 ml PO QID [facility] Stop: 08/07/21 02:29 Last Admin: 07/28/21 17:01 Dose: Not Given Documented by: Ondansetron HCl (Ondansetron Inj 2 Mg/Ml 2 Ml Vial) 4 mg IV Q6H PRN PRN Reason: Nausea Stop: 08/26/21 19:39 Pantoprazole Sodium (Pantoprazole 40 Mg Tab) 40 mg PO DAILY [facility] Stop: 08/27/21 08:59 Last Admin: 07/28/21 08:06 Dose: 40 mg Documented by: Polyethylene Glycol (Polyethylene (Miralax) 17 Gm Pack) 17 gm PO DAILY PRN PRN Reason: Constipation Stop: 08/26/21 19:39 Umeclidinium [place] (Umeclidinium [place] 62.5mcg/Blister 7 Puffs/Inhaler) 1 puffs INH DAILY [facility]; Protocol Stop: 08/27/21 08:59 Last Admin: 07/28/21 08:06 Dose: 1 puffs Documented by:
[2021-07-29] MEDS: BUDESONIDE 0.5 MG/2 ML VIAL (PULMICORT) INH SCH (07:20)
[2021-07-29] MEDS: BENZONATATE 100 MG CAPSULE PO SCH (08:14)
[2021-07-29] MEDS: FLUTICASONE/VILANTEROL 100/25MCG 14 PUFFS/INHALER INH SCH (08:15)
[2021-07-29] MEDS: dexAMETHasone 6 MG in SYRINGE 0 ML IV SCH (08:15)
[2021-07-29] MEDS: PANTOprazole 40 MG TAB PO SCH (08:16)
[2021-07-29] MEDS: NYSTATIN SUSP 500,000 U/5 ML UDC PO SCH (08:16)
--- NOTE | 2021-07-29 10:45 | Discharge Summary ---
Date of Service July 29, 2021 Admission HPI Per Admitting Provider This is a 51 yr old M who has a significant PMH of ALEXIS on CPAP, Asthma, Depression, Gerd who presents to ED 2/2 to + COVID -19 test. He had 1st vaccine on 07/06/21 and was suppose to get second dose today. He was seen and evaluated in clinic due to worsened SOB and due for second dose. He was found to be hypoxic saturating at 88%. He was dx with COVID-19 on 07/13. He continues to complain of weakness, productive cough and fatigue. He also admits to prior lung problems with asthma. Sx started on 07/08 with cough and congestion. He denies f/c/s, chest pain, hemoptysis, n/v/d, abdominal pain. He does have SOB at rest and with exertion as well decreased appetite. In ED he was hypoxic with exertion, CT chest consistent with multifocal viral PNA. He also had hypokalemia, and hyponatremia. He received 8mg IV decadron and IVF. Admission Exam Per Admitting Provider Physical Exam Gen-AAO x 3, NAD, Afebrile Head-NCAT, EOMI, PERRLA, Anicteric Sclera, No Posterior Pharyngeal Erythema Neck-Supple, No JVD, No Thyromegaly, No Masses, No LAD, No Bruits Lungs-Bibasilar Rales, No Rhonchi, No Wheezing, No Crepitus Chest-No S4, +S1, +S2, No S3, No Murmurs, No Rubs, No Gallops, No Ectopy Abdomen-Soft, Bowel Sounds Present, Non Tender, Non Distended, No Hepatomegaly, No Splenomegaly, No Palpable Masses, No Rebound, No Rigidity, No Guarding Musculoskeletal-Full Range of Motion Bilaterally, No CVAT Extremities-No Cyanosis, No Clubbing, No Edema Nuero-Cranial Nerves II-XII grossly intact, Motor WNL, DTRs WNL, Strength WNL, Non Focal Psych-Odd Mood Principal Diagnosis Covid pneumonia hypoxia Discharge Exam CONSTITUTIONAL: WNWD, vitals as above, NAD EYES: normal conjunctivae, no scleral icterus ENT: external ear and nose normal, MMM NECK: trachea midline RESPIRATORY: clear to auscultation bilaterally, no crackles, rales or wheezes, normal respiratory effort CARDIOVASCULAR: regular rate and rhythm, S1 and 2 heard without murmurs, gallops or rubs, no JVD, no peripheral edema CHEST: inspection of chest was normal GASTROINTESTINAL: soft, nontender, nondistended, no guarding. MUSCULOSKELETAL: strength 5/5 throughout, head is normocephalic and atraumatic, ambulatory. SKIN: warm and dry NEUROLOGIC: CN 2-12 grossly intact, no sensory deficit, normal cognition PSYCHIATRIC: alert cooperative and oriented to person, place and time. Discharge Data Allergies Allergy/AdvReac Type Severity Reaction Status Date / Time No Known Allergies Allergy Verified 07/27/21 15:43 Ordered Studies Laboratory Results WBC 11.96 K/uL (4.8-10.8) H 07/28/21 06:51 RBC 4.73 M/uL (4.7-6.1) 07/28/21 06:51 Hgb 14.5 g/dL (14.0-18.0) 07/28/21 06:51 Hct 41.7 % (42-52) L 07/28/21 06:51 MCV 88.2 fL (80-100) 07/28/21 06:51 MCH 30.7 pg (25-34) 07/28/21 06:51 MCHC 34.8 g/dL (32-36) 07/28/21 06:51 RDW Std Deviation 43.3 fL (36.4-46.3) 07/28/21 06:51 RDW Coeff of Estiven 13.4 % (11.5-14.5) 07/28/21 06:51 Plt Count 501 K/uL (130-400) H 07/28/21 06:51 MPV 9.7 fL (7.4-10.4) 07/28/21 06:51 Immature Gran % (Auto) 1.3 % 07/28/21 06:51 Neut % (Auto) 76.9 % 07/28/21 06:51 Lymph % (Auto) 12.7 % 07/28/21 06:51 Arroyo % (Auto) 8.8 % 07/28/21 06:51 Eos % (Auto) 0.1 % 07/28/21 06:51 Baso % (Auto) 0.2 % 07/28/21 06:51 Neut # (Auto) 9.20 K/uL (1.4-6.5) H 07/28/21 06:51 Lymph # (Auto) 1.52 K/uL (1.2-3.4) 07/28/21 06:51 Arroyo # (Auto) 1.05 K/uL (0.11-0.59) H 07/28/21 06:51 Eos # (Auto) 0.01 K/uL (0-0.5) 07/28/21 06:51 Baso # (Auto) 0.02 K/uL (0-0.2) 07/28/21 06:51 Immature Gran # (Auto) 0.16 K/uL (0.00-0.02) H 07/28/21 06:51 APTT 25.4 Seconds (21.0-31.0) 07/27/21 15:13 PTT Ratio 1.0 07/27/21 15:13 Sodium 139 mmol/L (136-145) 07/28/21 06:51 Potassium 3.9 mmol/L (3.5-5.1) D 07/28/21 06:51 Chloride 108 mmol/L (98-107) H 07/28/21 06:51 Carbon Dioxide 26 mmol/L (21-32) 07/28/21 06:51 Anion Gap 5.0 (3-11) 07/28/21 06:51 BUN 11 mg/dl (7-18) 07/28/21 06:51 Creatinine 0.84 mg/dl (0.6-1.4) 07/28/21 06:51 Est Cr Clr Drug Dosing 112.5 ml/min 07/28/21 06:51 Est GFR ( Amer) 118.3 ml/min 07/28/21 06:51 Est GFR (Non-Af Amer) 102.1 ml/min 07/28/21 06:51 BUN/Creatinine Ratio 13.1 (10-20) 07/28/21 06:51 Glucose 155 mg/dl (70-99) H 07/28/21 06:51 Estimat Average Glucose 143 mg/dl 07/28/21 06:51 Hemoglobin A1c 6.6 % (4.5-5.6) H 07/28/21 06:51 Calcium 8.6 mg/dl (8.5-10.1) 07/28/21 06:51 Magnesium 2.7 mg/dl (1.8-2.4) H 07/28/21 06:51 Total Bilirubin 0.3 mg/dl (0.2-1) 07/28/21 06:51 AST 30 U/L (15-37) 07/28/21 06:51 ALT 80 U/L (12-78) H 07/28/21 06:51 Alkaline Phosphatase 109 U/L (45-117) 07/28/21 06:51 Troponin I < 0.015 ng/ml (0-0.045) 07/27/21 15:13 Total Protein 6.7 gm/dl (6.4-8.2) 07/28/21 06:51 Albumin 2.4 gm/dl (3.4-5.0) L 07/28/21 06:51 Globulin 4.3 gm/dl (2.5-4.0) H 07/28/21 06:51 Albumin/Globulin Ratio 0.6 (0.9-2) L 07/28/21 06:51 Lipase 452 U/L (73-393) H 07/27/21 15:13 COVID-19 Eval Order Covid19 at [facility] 07/27/21 15:20 SARS-CoV-2 (PCR) POSITIVE (Negative) A* 07/27/21 15:20 Impressions Chest CTA 07/27/21 14:43 CT ANGIOGRAM OF THE CHEST CLINICAL HISTORY: Atypical chest pain. COMPARISON STUDY: Chest x-ray dated 07/27/2021. TECHNIQUE: Following the IV administration of 119 cc of Optiray 320, CT angiogram of the chest was performed from the upper abdomen to the thoracic inlet utilizing the pulmonary embolus protocol. Images are reviewed in the axial, sagittal, and coronal planes. 3-D MIPS images are created and assessed. IV contrast was administered without complication. A dose lowering technique was utilized adhering to the principles of ALARA. CT DOSE: 588.60 mGycm FINDINGS: Thyroid: Imaged portions of the thyroid gland are normal in size and attenuation. Thoracic aorta: The thoracic aorta is normal in caliber and demonstrates standard 3-vessel arch anatomy. No dissection is seen. Pulmonary vasculature: The pulmonary trunk is normal in caliber. There are no filling defects identified in main, lobar, or segmental pulmonary branches to suggest pulmonary embolus. Heart: The heart is top normal in size and without pericardial effusion. Lungs and pleural spaces: There is diffuse/multifocal airspace consolidation seen throughout both lungs. No pleural effusion is identified. The trachea and central airways are clear. Mediastinum: Mildly enlarged mediastinal nodes measure up to 12 mm in short axis. Asha: Mildly enlarged hilar nodes measure up to 12 mm in short axis. Axillae: There is no axillary lymphadenopathy. Upper abdomen: There is a small hiatal hernia. Partially visualized upper abdominal viscera is otherwise within normal limits. Skeletal structures: No lytic or blastic bony lesions are seen. IMPRESSION: 1. There is no evidence of pulmonary embolus in the main, lobar, or segmental pulmonary arteries. 2. Diffuse/multifocal airspace consolidation is typical for pneumonia. Clinical correlation will be required and radiographic follow-up to resolution is recommended. 3. Mildly enlarged mediastinal and hilar nodes are likely reactive. ACT 112: Negative or not required by law. Electronically signed by: Cheikh Toledo M.D. 07/27/2021 4:36 PM Chest X-Ray 07/27/21 14:45 XR chest 1V portable HISTORY: Atypical Chest Pain COMPARISON: None. FINDINGS: No pneumothorax. No pleural effusions. The heart is mildly enlarged. There are low lung volumes. There are patchy bilateral airspace opacities with interstitial thickening. IMPRESSION: Patchy bilateral airspace opacities with interstitial thickening. This favors a multifocal pneumonia and may be secondary to a viral process. ACT 112: Negative or not required by law. Electronically signed by: Wallace Valera M.D. 07/27/2021 3:33 PM Hospital Course (1) Pneumonia due to COVID-19 virus: (2) Hypoxia: (3) Asthma: (4) Moderate obstructive sleep apnea: (5) Anxiety: (6) Hypokalemia: (7) Transaminitis: The patient was a 51 yo M who had tested positive for covid approximately two weeks prior to arrival. His symptoms of malaise, cough and congestion were present and had resolved. However, his arrival to the ER was prompted by his low pulse oximetry reading in the clinic earlier that day. The patient was very anxious reporting issues with anxiety when leaving his home and severe claustrophobia. He was admitted to the hospitalist service and started on steroid therapy. A CT with contrast of the chest revealed no pulmonary emboli but multifocal infiltrates consistent with covid pneumonia. He was given IV fluids. Hypokalemia was noted and replaced with supplementation. Elevated transaminases were thought secondary to covid infection. 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 He doesnt require oxygen supplementation at baseline. He was very anxious on hospital day 2, appearing to be suffering from a panic attack. He was pacing the room, was visibly agitated, hypertensive and tachycardic. He was treated successfully with Xanax overnight, and serious counseling was recommended to get in control of this anxiety better. He did require minimal oxygen supplementation with exertion and was requesting to go home. This was provided to him at discharge. He was sent home in good condition, breathing without distress, with close primary care follow up recommended. He is also in the process of re-establishing care with a staff air tactical officer, whixh is definitely recommended. Total Time Total Time Spent Total Time Spent (In Minutes): 45 Discharge Plan Discharge Items Patient Disposition: Home - Self-Care Reason For Visit: COVID PNA, HYPOKALEMIA Discharge Diagnosis: Covid pneumonia hypoxia Anxiety Transaminitis Condition on Discharge: Good Activity: Resume your previous activity Non-emergency contact: Primary Care Provider Call non-emergency contact if: you have any medication questions, your symptoms worsen, your pain is not controlled and your pain is worsening Follow-up/Referrals: Santi Mulligan MD [Primary Care Provider] - 08/05/21 11:20 am (Date & Time 08/05/2021 11:20 AM Provider Santi Mulligan MD Department Family Medicine [facility] PLEASE NOTE THAT THIS IS A TELEPHONE APPOINTMENT. YOUR PROVIDER WILL CALL YOU AT THE APPOINTMENT TIME. IF YOU HAVE ANY QUESTIONS REGARDING THIS APPOINTMENT, PLEASE CALL ) Diet: Regular Addtl Attending Provider Instructions: Please take all medications as instructed on discharge as below. You are being given home supplemental oxygen to take with any activity. It is expected that your needs for this will decrease with improvement in pneumonia. It is recommended that you have a repeat chest x-ray performed in 4 weeks to ensure complete resolution of pneumonia. This may be ordered through your primary care doctor. It is recommended that you follow-up with your primary care doctor within a week of discharge to ensure you are still doing well. Additionally, ways to manage her anxiety must be explored. You are being given a small amount of Xanax to take in the event of panic attacks, however long-term anxiety management is a combination of psychotherapy, emotional support and medical therapy. Please work with your primary care doctor to coordinate total care for this complex issue. While hospitalized your liver function tests were elevated and should be repeated by your primary care doctor on follow-up. It is recommended that you follow-up with a staff air tactical officer to ensure ongoing care of your pulmonary condition. Steroid sparing therapies may be available. It was a pleasure taking care of you! Please call if you have any questions or problems. You can reach a [facility] hospitalist on duty at [facility] [address] 24 hours a day by calling [phone]. Take care of yourself. Roxana Brantley, [facility] Medical Centerist Pending Studies at Discharge: No Stand-Alone Forms: My [facility] Medications and DC Order Prescriptions: New (DME) Oxygen Home Liters Per Minute See Rx Instructions .Route Qty: 1 RF: 0 alprazolam [Xanax] 0.5 mg Tablet 0.5 mg PO Q8H PRN (Reason: severe anxiety) Qty: 10 RF: 0 Continued albuterol sulfate 2.5 mg /3 mL (0.083 %) Solution For Nebulization 2.5 mg INHALATION Q4H PRN (Reason: Shortness Of Breath) RF: 0 prednisone 5 mg Tablet 5 mg PO DAILY RF: 0 montelukast [Singulair] 10 mg Tablet 10 mg PO DAILY RF: 0 albuterol sulfate 90 mcg/actuation Hfa Aerosol Inhaler 2 puff INHALATION Q6H PRN (Reason: Shortness Of Breath) RF: 0 omeprazole 20 mg Tablet,Delayed Release (Dr/Ec) 20 mg PO DAILY RF: 0 budesonide [Pulmicort] 0.5 mg/2 mL Suspension For Nebulization 0.5 mg INHALATION BID RF: 0 Tudorza Pressair 400 mcg/actuation Aerosol Powdr Breath Activated 1 inh INHALATION Q12H RF: 0 Breo Ellipta 100-25 mcg/dose Blister With Device 1 inh INHALATION DAILY RF: 0 nystatin 100,000 unit/mL suspension 5 ml PO QID RF: 0 Discharge Orders: Discharge Order (Routine); Ordered 07/29/21 Ordered By: Roxana Garcia/Other Patient Handouts: High Blood Sugar (Hyperglycemia), Hypoglycemia (Low Blood Sugar), Exercise to Manage Your Blood Sugar, Diabetes: Meal Planning, Type 2 Diabetes Admission Data Admit Date/Time: 07/27/21 16:55 Attending Provider: Roxana Brantley Admit Provider: Abdelrahman Duong Primary Care Provider: Santi Mulligan Other Interventions: Discharge Summary Assessment (RN) Last Done: 07/29/21 11:41
== END 2021-07-29 13:30 | disposition home or self-care (01) | DRG 177 ==
LOC: ED 13:03 → 2S 16:55 → SUATTDRO 16:55 → 2S 17:57
DX: E87.6 Hypokalemia; U07.1 COVID-19; F32.9 Major depressive disorder, single episode, unspecified; J12.82 Pneumonia due to coronavirus disease 2019; K21.9 Gastro-esophageal reflux disease without esophagitis; J45.909 Unspecified asthma, uncomplicated; G47.33 Obstructive sleep apnea (adult) (pediatric); E88.09 Other disorders of plasma-protein metabolism, not elsewhere classified